=== PATIENT | female | born 1970 | race African-American/Black ===

== ENCOUNTER 2022-07-02 11:00 | Outpatient (RCR) | payer MEDICARE, SELFPAY ==
--- NOTE | 2022-01-30 14:37 | PCPTNOTE ---
Patient did not show up for scheduled initial evaluation this date.
== END 2022-07-02 11:01 | disposition home or self-care (01) ==
LOC: ANHPT 11:00
PROVIDERS: PCP Internal Medicine Gastroenterology; Visit Provider Internal Medicine Gastroenterology
DX: M54.50 Low back pain, unspecified (principal)
CPT/HCPCS: 99199

== ENCOUNTER 2023-07-20 01:21 | Day surgery (SDC) | payer MEDICARE, MEDICAID, SELFPAY ==
[2023-07-17 10:15] VITALS: BMI 36.1
--- NOTE | 2023-07-20 08:16 | WPDANESEPPF ---
Anes - Initial Pre Proc Eval Procedure: Operation Date: 07/20/23 11:30 Proposed Procedures p Esophagogastroduodenoscopy - Malcom Abdullahi MD Date/Time: 07/20/23 08:16 Surgeon: Malcom Abdullahi MD Pre Op Diagnosis: epigastric pain,gaseous,early satiety,nausea Patient Data Age: 52 Gender: F Height: 1.68 m Weight: 101.75 kg Allergies Allergy/AdvReac Type Severity Reaction Status Date / Time phenytoin [From Dilantin] AdvReac Mild Itching Verified 07/20/23 10:14 Home Medications Medication Instructions Recorded Confirmed Type citalopram 20 mg tablet 20 mg PO DAILY 07/13/23 07/20/23 History cyclobenzaprine 10 mg tablet 10 mg PO TID 07/13/23 07/20/23 History gabapentin 800 mg tablet 800 mg PO TID 07/13/23 07/20/23 History linaclotide 145 mcg capsule 145 mcg PO DAILY 07/13/23 07/20/23 History (Linzess) metformin 500 mg tablet 500 mg PO BID 07/13/23 07/20/23 History omeprazole 40 mg capsule,delayed 40 mg PO BID #60 caps 07/13/23 07/20/23 Rx release ondansetron HCl 4 mg tablet 4 - 8 mg PO Q8H PRN nausea and 07/13/23 07/20/23 Rx vomiting #30 tabs propranolol 10 mg tablet 10 mg PO Q12H 07/13/23 07/20/23 History risperidone 1 mg tablet (Risperdal) 1 mg PO DAILY 07/13/23 07/20/23 History rosuvastatin 10 mg tablet 10 mg PO DAILY 07/13/23 07/20/23 History sucralfate 1 gram tablet (Carafate) 1 g PO ACHS #120 tabs 07/13/23 07/20/23 Rx tramadol 50 mg tablet 50 mg PO Q6H PRN Pain 07/13/23 07/20/23 History zolpidem 5 mg tablet 5 mg PO QHS 07/13/23 07/20/23 History bupropion HCl 150 mg tablet,12 hr 150 mg PO BID 07/17/23 07/20/23 History sustained-release enalapril 5 mg-hydrochlorothiazide 1 tablet PO DAILY 07/17/23 07/20/23 History 12.5 mg tablet hydroxyzine pamoate 25 mg capsule 25 mg PO DAILY PRN Anxiety 07/17/23 07/20/23 History Patient hx anesthesia problems: none Family hx anesthesia problems: none Results Review: All pre-operative results and documents have been reviewed as part of the pre-operative evaluation. [facility] Past Medical History Medical History (Updated 07/13/23 @ 15:54 by Martha Hernandez APRN) Bipolar affect, depressed Bloating Colon cancer screening Diabetes mellitus type 2 in obese Early satiety Epigastric abdominal pain Heart murmur Hypertension Irritable bowel syndrome with constipation Migraines Nausea Obesity Seizures Sleep apnea Weight loss Surgical History Surgical History (Updated 07/13/23 @ 15:53 by Martha Hernandez APRN) H/O abdominal hysterectomy H/O eye surgery History of total right knee replacement Hx of cholecystectomy Hx of laparoscopic adjustable gastric banding Status post breast reduction Social History Social History Smoking status: Never smoker Alcohol intake: current Substance use: never Substance use type: does not use Living arrangements: with family Spiritual care concerns: No Anes - Eval Final PreProcedure Day of Procedure 07/20/23 08:16 Patient weight: obese Heart: regular rate and rhythm Lungs: clear to auscultation Airway: Mallampati scale class II Neurological: alert and oriented Last oral intake: >/= 8 hours ASA classification: III Emergent: no Anesthetic plan: proceed Anesthesia type and monitoring: general GIVS and standard monitoring Results Review: All pre-operative results and documents have been reviewed as part of the pre-operative evaluation. Informed Consent: The patient's anesthetic plan and its attendant risks and benefits were discussed with the patient/family/POA. Questions were solicited and answers provided to the satisfaction of the patient/family/POA.
[2023-07-20 10:15] VITALS: BP 161/90; PULSE 83; RESP 17; TEMP 36; O2SAT 96; BMI 31.9
[2023-07-20] MEDS: LACTATED RINGERS 1,000 ML 150 ML IV CONT (10:31)
--- NOTE | 2023-07-20 10:35 | WPDHPUPDATE1 ---
History and Physical Update Update Date/Time: 07/20/23 10:35 History and Physical has been reviewed, including an updated exam of the patient. There are NO changes in the patient's condition. Risks, benefits, and alternatives have been discussed and questions answered. Patient agrees to proceed with procedure.
[2023-07-20 10:38] LABS: Glucose Point of Care 143 mg/dl (65-105)
[2023-07-20 10:57] VITALS: BP 135/61; PULSE 85; RESP 22; O2SAT 96
[2023-07-20 11:07] VITALS: BP 144/66; PULSE 83; RESP 23; O2SAT 96
[2023-07-20 11:17] VITALS: BP 148/70; PULSE 78; RESP 22; O2SAT 95
== END 2023-07-20 11:25 | disposition home or self-care (01) ==
PROVIDERS: PCP Internal Medicine Gastroenterology; Visit Provider Internal Medicine Gastroenterology
PROC: 0DJ08ZZ Inspection of Upper Intestinal Tract, Via Natural or Artificial Opening Endoscopic (ICD-10-PCS; CPT 43235; principal; 2023-07-20 11:30)
DX: T18.2XXA Foreign body in stomach, initial encounter (principal); K29.70 Gastritis, unspecified, without bleeding; I10 Essential (primary) hypertension; K58.1 Irritable bowel syndrome with constipation; E11.9 Type 2 diabetes mellitus without complications; E66.9 Obesity, unspecified; Z68.32 Body mass index [BMI] 32.0-32.9, adult; Z98.84 Bariatric surgery status; Z79.84 Long term (current) use of oral hypoglycemic drugs
CPT/HCPCS: 43239; 82948; 88305; J2704; J7120

== ENCOUNTER 2023-09-03 12:33 | Outpatient (CLI) | payer MEDICARE, MEDICAID, SELFPAY ==
[2023-09-03 13:19] LABS: Hematocrit 45.2 % (37.0-47.0); Hemoglobin 14.5 g/dL (12.0-15.0); Mean Corpuscular HGB Conc 32.1 g/dl (32-36); Mean Corpuscular Hemoglobin 26.6 pg (26-34); Mean Corpuscular Volume 82.8 fl (80-100); Mean Platelet Volume 10.4 fl (7.4-10.4); Platelet Count Result 368 k/mm3 (150-375); Red Blood Count 5.46 M/mm3 (4.2-5.4); Red Cell Distribution Width 16.2 % (11.5-14.5); White Blood Count 9.1 K/mm3 (4.5-10.0)
[2023-09-03 13:29] LABS: Alanine Aminotransferase 41 U/L (6-35); Albumin Level 4.7 g/dL (3.5-5.1); Alkaline Phosphatase 155 U/L (38-126); Anion Gap 11 mmol/L (8-16); Aspartate Amino Transferase 53 U/L (14-36); Bilirubin,Total 0.7 mg/dL (0.2-1.3); Blood Urea Nitrogen 9 mg/dL (7-17); Carbon Dioxide 30 mmol/L (22-30); Chloride 101 mmol/L (98-107); Estimated Glomerular Filt Rate > 60; Glucose 110 mg/dL (65-110); Lipase 59 U/L (23-300); Sodium 142 mmol/L (137-145)
== END 2023-09-03 12:34 | disposition home or self-care (01) ==
LOC: ANHLAB 12:38
PROVIDERS: PCP Internal Medicine Gastroenterology; Visit Provider Nurse Practitioner
DX: R10.13 Epigastric pain (principal); R11.0 Nausea; R14.0 Abdominal distension (gaseous); R68.81 Early satiety; Z98.84 Bariatric surgery status
CPT/HCPCS: 36415; 80053; 83690; 85027

== ENCOUNTER 2025-02-21 08:57 | Outpatient (CLI) | payer MEDICARE, MEDICAID, SELFPAY ==
--- OUTSIDE RECORDS SUMMARY | 2003-07-24 05:45 | XMS_ITS | Continuity of Care Document ---
Author Organization [facility] Address [address] [place] [address] Phone Care Team Providers Care Dredge Mate Name Role Phone Maged Forbes Unavailable Unavailable Advance Directives Directive Yes / No Effective Date File Name No Information Encounters Encounter Description Practice Location Reason(s) For Visit Diagnoses Date Provider Providers Copied on Encounter [facility], [address], [place], [place], [id number], [place] tel:[phone] [facility] Professional No Information 4 Andrei Lynne. [address] , [place], [address], [place]. tel:[phone] Family History Family Member Type Diagnosis Age At Onset No Information Payers Payer name Insurance type Covered green party ID Authoriza tion(s) Medicare [facility] [id number] Medicaid [facility] [id number] Social History Type Description Quantity Date Captured Comments Sex Female Smoking Status No Information Chief Complaint And Reason For Visit No Information Reason For Referral Reason For Referral No Information History Of Present Illness Encounter Date Complaint History Of Prese nt Illness No Information Functional Status Date Functional Assessmen t No Information Instructions Date Instruction Additional Infor mation No Information Assessments Type Assessment Date No Information Patient Care Teams Name Effective Dates (start - stop) Status Members No Information
--- OUTSIDE RECORDS SUMMARY | 2025-02-21 09:21 | XMS_ITS | Encounter Summary ---
Author Organization [facility] Address [address] [place] [address] Care Team Providers Care Certified Industrial Hygienist Name Role Phone Obed Red MD Primary Care Provider + [phone] Encounter Details Date Type Department Care Team (Late st Contact Info) Description 02/06/2011 SS Outpatient Visit EXTERNAL NON-[facility] DEPT Neil Alarcon MD [address] [place] [id number] Social History Tobacco Use Types Packs/Day Years Used Date Smoking Tobacco: Never Smokeless Tobacco: Never Alcohol Use Standard Drinks/Week Comments No 0 (1 standard drink = 0.6 oz pur e alcohol) Comments No Sex and Gender Information Value Date Recorded Sex Assigned at Not on file 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
--- OUTSIDE RECORDS SUMMARY | 2025-02-21 09:21 | XMS_ITS | Clinical Summary ---
Author Organization [facility] Address [address] [place] [address] Care Team Providers Care Parachute Crown Sewer Name Role Phone Obed Red MD Primary Care Provider Allergies Active Allergy Reactions Criticality Noted Date Comments Phenytoin Sodium Extended Itching Low 02/07/2018 Medications ibuprofen (ADVIL,MOTRIN) 800 mg tablet Take 1 tablet (800 mg total) by mouth every 8 (eight) hours as needed for pain or fever. 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 TESTER Gender Identity Not on file Sexual Orientation Not on file Obstetrics History Last Filed Vital Signs Vital Sign Reading Time Taken Comments Blood Pressure 147/91 02/07/2018 4:15 PM CDT Pulse 96 02/07/2018 4:15 PM CDT Temperature 36.7 C (98.1 F) 02/07/2018 4:15 PM CDT Respiratory Rate 16 02/07/2018 4:15 PM CDT Oxygen Saturation 98% 02/07/2018 4:15 PM CDT Inhaled Oxygen Concentration - - Weight 108 kg (238 lb) 02/07/2018 4:15 PM CDT Height 167.6 cm (5' 6) 02/07/2018 4:15 PM CDT Body Mass Index 38.41 02/07/2018 4:15 PM CDT Plan of Treatment Health Maintenance Due Date Last Done Comments Breast Cancer Screening-Mammogram 1968 Colon Cancer Screening-Colonoscopy 1968 Depression Screening 1968 Hepatitis C Screening 1968 DTaP/Tdap/Td Vaccine (1 - Tdap) 12/19/1979 Hepatitis B Screening 1986 Regular Well Visit/Exam 18-64 1986 Zoster Vaccine (1 of 2) 2018 Influenza Vaccine (#1) 2025 05/07/2019 Pneumococcal vaccine <65 Aged Out No longer eligible based on patient's age to complete this topic Insurance [employer] MEDICARE PPO [facility] MEDICARE ADVANTAGE [facility]ICARE [facility] Address: [address] [address] [place] [address] Care Teams Parachute Crown Sewer Relationship Specialty Start Date End Date Obed Red MD [address] [address] PCP - General 09/12/16
--- OUTSIDE RECORDS SUMMARY | 2025-02-21 09:21 | XMS_ITS | Clinical Summary ---
Author Organization [facility] Address [address] [place] [address] Care Team Providers Care Store Stock Help Name Role Phone Obed Red MD Primary Care Provider [phone] [facility],non-owned Affiliates and Associated Physician Practices is amultiple site organization consisting of ambulatory clinics and hospital sitesin [place] and [place]. This disclosure is being madepursuant to the Care Everywhere program and may not contain all information available regarding this patient. Last updated 18.[facility] Allergies Active Allergy Reactions Criticality Noted Date Comments Phenytoin Rash,Itching High 10/23/2010 Phenytoin Itching 12/09/2010 Medications * Be aware that medications may not be up to date on this document. Alwaysverify current medications with the patient. gabapentin (NEURONTIN) 800 MG tablet Take 1 (one) tablet by mouth 3 times daily Active buPROPion SR 12hr (WELLBUTRIN-SR ) 150 MG tablet Take 1 (one) tablet by mouth 2 times daily 9 Active citalopram (CeleXA) 20 MG tablet Take 1 (one) tablet by mouth once daily Takes with 10 mg product for a total of 30 mg 9 Active hydrOXYzine pamoate (VISTARIL) 25 MG capsule Take 1 (one) capsule by mouth once daily as needed for Anxiety 9 Active zolpidem (AMBIEN) 5 MG tablet Take 1 (one) tablet by mouth at bedtime 9 Active risperiDONE (RISPERDAL) 1 MG tablet Take 1 (one) tablet by mouth at bedtime Active propranolol (Inderal) 10 MG tablet Take 1 (one) tablet by mouth 2 times daily with morning and evening meal 3 Active cyclobenzaprin e (Flexeril) 10 MG tablet Take 1 (one) tablet by mouth 3 times daily as needed 3 Active Linzess 145 MCG capsule Take 1 (one) capsule by mouth once daily 4 Active rosuvastatin (Crestor) 10 MG tablet Take 1 (one) tablet by mouth once daily 3 Active citalopram (CeleXA) 10 MG tablet Take 1 (one) tablet by mouth once daily Takes with 20 mg product for a total of 30 mg Active amLODIPine (Norvasc) 10 MG tablet Take 1 (one) tablet by mouth once daily Active Farxiga 10 MG tablet Take 1 (one) tablet by mouth once daily 4 Active hydrALAZINE (Apresoline) 50 MG tablet Take 1 (one) tablet by mouth 2 times daily Active Semaglutide(0. 25 or 0.5MG/DOS) 2 MG/3ML Solution Pen-injector (Ozempic (0.25 or 0.5 MG/DOSE))Indic ations:Type 2 Diabetes Mellitus Inject 0.25 mg subcutaneously every 7 days Reasons: Type 2 Diabetes 3 mL 4 Active Semaglutide(0. 25 or 0.5MG/DOS) 2 MG/3ML Solution Pen-injector (Ozempic (0.25 or 0.5 MG/DOSE))Indic ations:Control led type 2 diabetes mellitus without complication, without long-term current use of insulin (HCC) Inject 0.5 mg subcutaneously every 7 days 6 mL 4 Active Active Problems Problem Noted Date Diagnosed Date Extremity edema 10/22/2023 Bariatric surgery status 10/12/2023 Immunizations Immunization Administration Dates Next Due INFLUENZA VACCINE 05/07/2019 Social History Tobacco Use Types Packs/Day Years Used Date Smoking Tobacco: Never Smokeless Tobacco: Never Tobacco Cessation:Counseling Given: Not Answered Alcohol Use Standard Drinks/Week Comments No 0 (1 standard drink = 0.6 oz pur e alcohol) AUDIT-C Answer Date Recorded Q1: How often do you have a drink containing alcohol? Never 10/12/2023 Q2: How many drinks containi ng alcohol do you have on a typical day when you are drinking? Patient does not drink Q3: How often do you have si x or more drinks on one occasion? Never 10/12/2023 Overall Financial Resource Strain (CARDIA) Answe r Date Recorded How hard is it for you to pa y for the very basics like food, housing, medical care, and heating? Not hard at all 10/12/2023 [facility] - Occupational Stress Questionnaire Answer Date Recorded Do you feel stress - tense, restless, nervous, or anxious, or unable to sleep at night because your mind is troubled all the time - these days? Not at all 10/12/2023 Hunger Vital Sign Answer Date Recorded Within the past 12 months, y ou worried that your food would run out before you got the money to buy more. Never true 10/12/19 24 Within the past 12 months, t he food you bought just didn't last and you didn't have money to get more. Never true 10/12/2023 PRAPARE - Transportation Answer Date Re corded In the past 12 months, has l ack of transportation kept you from medical appointments or from getting medications? No 02/2024 In the past 12 months, has l ack of transportation kept you from meetings, work, or from getting things needed for daily living? No 10/12/2023 Housing Stability Vital Sign Answer Navneet e Recorded In the last 12 months, was t here a time when you were not able to pay the mortgage or rent on time? No 10/12/2023 In the last 12 months, how many places have you lived? 1 10/12/2023 In the last 12 months, was t here a time when you did not have a steady place to sleep or slept in a detention (including now)? No 10/12/2023 Comments No Sex and Gender Information Value Date Recorded Sex Assigned at Not on file Legal Sex Female 11:37 AM FINISHED GOODS STOCK CLERK Gender Identity Not on file Sexual Orientation Not on file Last Filed Vital Signs Vital Sign Reading Time Taken Comments Blood Pressure 126/84 06/23/2024 1:29 PM FINISHED GOODS STOCK CLERK Pulse 100 06/23/2024 1:29 PM FINISHED GOODS STOCK CLERK Temperature 36.1 C (96.9 F) 06/23/2024 1:29 PM FINISHED GOODS STOCK CLERK Respiratory Rate 16 11/12/2023 11:25 AM CDT Oxygen Saturation 94% 06/23/2024 1:29 PM FINISHED GOODS STOCK CLERK Inhaled Oxygen Concentration - - Weight 109 kg (240 lb 3.2 oz) 06/23/2024 1:29 PM FINISHED GOODS STOCK CLERK Height 167.6 cm (5' 6) 06/23/2024 1:29 PM FINISHED GOODS STOCK CLERK Body Mass Index 38.77 06/23/2024 1:29 PM FINISHED GOODS STOCK CLERK Plan of Treatment Health Maintenance Due Date Last Done Comments COLOGUARD (AGES 45-75) - COLON CA SCREENING 1968 COLON MONITORING 1968 COLONOSCOPY - COLON CA SCREENING 1968 CT COLONOGRAPHY - COLON CA SCREENING 1968 Colorectal Cancer Screening 1968 FIT - COLON CA SCREENING 1968 FLEX SIG - COLON CA SCREENING 1968 MAMMOGRAM 1968 HIV SCREENING 12/19/1983 HEPATITIS C SCREENING 12/14/1986 DTAP/TDAP/TD VACCINES (1 - Tdap) 12/19/1987 HEPATITIS B VACCINE (1 of 3 - 19+ 3-dose series) 12/19/1987 PNEUMOCOCCAL VACCINE 50+ (1 of 2 - PCV) 12/19/1987 PAP SMEAR 1989 ZOSTER VACCINE (1 of 2) 2018 COVID-19 VACCINE (1 - season) 2024 DEPRESSION SCREENING 07/06/2024 MEDICARE AWV CALENDAR YEAR 2024 INFLUENZA VACCINE (#1) 2025 05/07/2019 SCREENING FOR DIABETES 11/02/2026 4, 11/03/2023, 11/03/2023, Additional history exists HIB VACCINE Aged Out No longer eligi ble based on patient's age to complete this topic HPV VACCINE Aged Out No longer eligi ble based on patient's age to complete this topic MENINGOCOCCAL (Group B) VACCINE SHARED DECISION-MAKING Aged Out No longer eligible based on patient's age to complete this topic MENINGOCOCCAL GROUPS A/C/Y/W VACCINE Aged Out No longer eligible based on patient's age to complete this topic Procedures Procedure Name Priority Date/Time Associated Diagnosis Comments GLUCOSE - POINT OF CARE Routine 11/03/2023 11:17 AM CDT from Last 3 Months or Most Recently Relevant to Health Maintenance Results * (ABNORMAL) GLUCOSE - POINT OF CARE (11/03/2023 11:17 AM CDT) Glucose WB/POC 177(H) 70 - 106 mg/dL 11/03/2023 11:22 AM CDT [facility] Specimen Type Arterial 11/03/2023 11:22 AM CDT [facility] Blood BLOOD SPECIMEN / Unknown 11/03/2023 11:17 AM CDT 11/03/2023 11:22 AM CDT us Neil Alarcon MD LAB - POINT OF CARE ORDERABLE S Final Result [facility] [address] [place] [address] from Last 3 Months or Most Recently Relevant to Health Maintenance Insurance MEDICA[place] - [place] [facility] MANAGED MEDICARE ADV MEDICAID - [place] Advance Directives * Full Code (Latest Code Status on File) Date Activated Date Inactivated Comments 10/12/2023 6:11 PM 11/03/2023 5:43 PM * Full Code Date Activated Date Inactivated Comments 12/16/2010 4:55 PM 2010 3:10 AM Care Teams Store Stock Help Relationship Specialty Start Date End Date Obed Red MD [address] [place] [address] PCP - General 02/15/19
--- NOTE | 2025-03-15 09:49 | WPDSLEEPSTUD ---
Sleep Study Date of Study: 02/21/25 Ordering Provider: Johny Porter, Interpreting Physician: Moon Bolaños MD Sleep Study Type: Split Polysomnogram Height: 1.68 m Weight: 100.244 kg Body Mass Index: 35.6 Neck Circumference (inches): 17.5 [place]: 8 PMFSH Past Medical History Medical History Obesity hypoventilation syndrome Obstructive sleep apnea Neuropathic pain Colon cancer screening Irritable bowel syndrome with constipation Heart murmur Seizures Bipolar affect, depressed Migraines Hypertension Sleep apnea Diabetes mellitus type 2 in obese Weight loss Obesity Nausea Early satiety Bloating Epigastric abdominal pain Surgical History Surgical History History of total right knee replacement H/O eye surgery H/O abdominal hysterectomy Status post breast reduction Hx of cholecystectomy Hx of laparoscopic adjustable gastric banding Social History Social History Smoking status: Never smoker Alcohol intake: unknown Substance use: unknown Substance use type: does not use Do You Feel Safe in your Home?: Yes Lack of Transportation: No Lack of Food: Never True Current Housing: I Have Housing Concerned About Future Housing: No Difficulty Paying Gas/Electric Bills: No Difficulty Paying for Meds: No Currently Unemployed: No Education: Trade/Vocational Certificate Difficulty w/ Childcare or Family Care: No Living arrangements: with family Spiritual care concerns: No Medications Home Medications ?Medication ?Instructions ?Recorded ?Confirmed ?Type acetaminophen 500 mg capsule 1,000 mg PO Q6H 01/07/25 01/07/25 History calcium carbonate 600 mg PO BID 01/07/25 01/07/25 History cholecalciferol (vitamin D3) 125 5,000 unit PO DAILY 01/07/25 01/07/25 History mcg (5,000 unit) capsule diazepam 5 mg tablet 5 mg PO Q6H PRN muscle spasm 01/07/25 01/07/25 History diphenhydramine HCl 25 mg capsule 25 mg PO HS 01/07/25 01/07/25 History ergocalciferol (vitamin D2) 1,250 1,250 mcg PO WEEKLY 01/07/25 01/07/25 History mcg (50,000 unit) capsule gabapentin 800 mg tablet 800 mg PO TID 01/07/25 01/07/25 History linaclotide 290 mcg capsule 290 mcg PO QAM 01/07/25 01/07/25 History (Linzess) polyethylene glycol 3350 17 gram 17 g PO BID 01/07/25 01/07/25 History oral powder packet semaglutide 1 mg/dose (4 mg/3 mL) 1 mg subcut WEEKLY 01/07/25 01/07/25 History subcutaneous pen injector (Ozempic) sennosides 8.6 mg-docusate sodium 1 tab-cap PO BID 01/07/25 01/07/25 History 50 mg tablet (Senna with Docusate Sodium) zolpidem 10 mg tablet 10 mg PO HS 01/07/25 01/07/25 History amlodipine 10 mg tablet 10 mg PO DAILY #30 tabs 01/18/25 Rx aripiprazole 10 mg tablet 10 mg PO DAILY #30 tabs 01/18/25 Rx citalopram 30 mg capsule 30 mg PO DAILY #30 caps 01/18/25 Rx cyclobenzaprine 10 mg tablet 5 mg (1/2 x 10 mg) PO Q8H #90 tabs 01/18/25 Rx hydralazine 50 mg tablet 50 mg PO BID #60 tabs 01/18/25 Rx lisinopril 40 mg tablet 40 mg PO DAILY #30 tabs 01/18/25 Rx propranolol 10 mg tablet 10 mg PO Q12H #60 tabs 01/18/25 Rx risperidone 1 mg tablet 1 mg PO HS #30 tabs 01/18/25 Rx rosuvastatin 20 mg tablet 20 mg PO DAILY #30 tabs 01/18/25 Rx naloxone 4 mg/actuation nasal 4 mg intranasal Q2M PRN opioid 01/19/25 Rx spray (Narcan) overdose #2 ea oxycodone 5 mg tablet 5 - 10 mg (1 - 2 x 5 mg) PO Q4H 01/19/25 Rx PRN pain #30 tabs Assessment and Plan Data The data obtained during this sleep study is adequate for interpretation. Certification This sleep study has been reviewed by a board certified sleep medicine physician.
[2025-03-23 07:43] VITALS: BMI 35.6
--- NOTE | 2025-03-23 07:43 | WPDSLEEPSTUD ---
Sleep Study Date of Study: 02/21/25 Ordering Provider: Johny PorterMD Interpreting Physician: Court Reza DO Sleep Study Type: Split Polysomnogram Height: 1.68 m Weight: 100.244 kg Body Mass Index: 35.6 Neck Circumference (inches): 17.5 Lena: 8 Reason for Sleep Study snoring, daytime hypersomnia Sleep History The patient is a 54-year-old female with previously diagnosed obesity hypoventilation syndrome and obstructive sleep apnea that had a sleep study ordered by her planer stone to requalify for equipment. The patient occasionally awakens from sleep short of breath. She occasionally awakens at night with heartburn, belching or cough. She frequently snores and is occasionally loud enough that others complain. She frequently has trouble sleeping when she has a cold. She rarely wakes up gasping for air throughout the night. She occasionally has breathing problems at night observed by herself or others. She frequently sweats excessively at night. She rarely has heart palpitations or irregular heartbeats during the night. She occasionally falls asleep during the day but never while driving. She denies cataplexy. She denies having trouble at school or work due to sleepiness. She rarely feels unable to move while waking up or falling asleep. She occasionally experiences vivid dreamlike scenes upon awakening or falling asleep. She denies feeling afraid of going to sleep. She denies having nightmares. She frequently remembers her dreams. She rarely has thoughts racing through her mind. She frequently feels sad, depressed and anxious. She frequently has muscular tension. She constantly notices parts of her body jerk. She occasionally kicks during the night. She occasionally has crawling and aching feelings in her legs but rarely has leg pain during the night. She occasionally grinds her teeth during sleep but never awakens with morning jaw pain. She is frequently bothered by pain during the day and frequently awakened by pain during the night. She constantly wakes up feeling stiff in the morning. She constantly wakes up with sore or achy muscles. She constantly wakes up with pain in the neck, spine and other joints. She goes to bed at 10:30 p.m. on weekdays and at 11:30 p.m. on the weekends. It takes her 1-2 hours to fall asleep. She wakes up twice throughout the night to urinate and is able to fall back asleep within 20 minutes. She wakes up at 3:20 a.m. every morning. She typically gets 6 hours of sleep per night. She will stay in bed for 2 hours after waking up in the morning. She currently lives with her teenage grandson. She denies consuming any caffeinated beverages within 2 hours of bedtime. She denies engaging in physical exercise before bedtime. She will read watch television before falling asleep. He will take naps in afternoon or the evening and they are refreshing. She does consume caffeinated beverages throughout the day. She denies tobacco, alcohol and recreational drug use. [facility] Past Medical History Medical History Obesity hypoventilation syndrome Obstructive sleep apnea Neuropathic pain Colon cancer screening Irritable bowel syndrome with constipation Heart murmur Seizures Bipolar affect, depressed Migraines Hypertension Sleep apnea Diabetes mellitus type 2 in obese Weight loss Obesity Nausea Early satiety Bloating Epigastric abdominal pain Surgical History Surgical History History of total right knee replacement H/O eye surgery H/O abdominal hysterectomy Status post breast reduction Hx of cholecystectomy Hx of laparoscopic adjustable gastric banding Social History Social History Smoking status: Never smoker Alcohol intake: unknown Substance use: unknown Substance use type: does not use Do You Feel Safe in your Home?: Yes Lack of Transportation: No Lack of Food: Never True Current Housing: I Have Housing Concerned About Future Housing: No Difficulty Paying Gas/Electric Bills: No Difficulty Paying for Meds: No Currently Unemployed: No Education: Trade/Vocational Certificate Difficulty w/ Childcare or Family Care: No Living arrangements: with family Spiritual care concerns: No Medications Home Medications ?Medication ?Instructions ?Recorded ?Confirmed ?Type acetaminophen 500 mg capsule 1,000 mg PO Q6H 01/07/25 01/07/25 History calcium carbonate 600 mg PO BID 01/07/25 01/07/25 History cholecalciferol (vitamin D3) 125 5,000 unit PO DAILY 01/07/25 01/07/25 History mcg (5,000 unit) capsule diazepam 5 mg tablet 5 mg PO Q6H PRN muscle spasm 01/07/25 01/07/25 History diphenhydramine HCl 25 mg capsule 25 mg PO HS 01/07/25 01/07/25 History ergocalciferol (vitamin D2) 1,250 1,250 mcg PO WEEKLY 01/07/25 01/07/25 History mcg (50,000 unit) capsule gabapentin 800 mg tablet 800 mg PO TID 01/07/25 01/07/25 History linaclotide 290 mcg capsule 290 mcg PO QAM 01/07/25 01/07/25 History (Linzess) polyethylene glycol 3350 17 gram 17 g PO BID 01/07/25 01/07/25 History oral powder packet semaglutide 1 mg/dose (4 mg/3 mL) 1 mg subcut WEEKLY 01/07/25 01/07/25 History subcutaneous pen injector (Ozempic) sennosides 8.6 mg-docusate sodium 1 tab-cap PO BID 01/07/25 01/07/25 History 50 mg tablet (Senna with Docusate Sodium) zolpidem 10 mg tablet 10 mg PO HS 01/07/25 01/07/25 History amlodipine 10 mg tablet 10 mg PO DAILY #30 tabs 01/18/25 Rx aripiprazole 10 mg tablet 10 mg PO DAILY #30 tabs 01/18/25 Rx citalopram 30 mg capsule 30 mg PO DAILY #30 caps 01/18/25 Rx cyclobenzaprine 10 mg tablet 5 mg (1/2 x 10 mg) PO Q8H #90 tabs 01/18/25 Rx hydralazine 50 mg tablet 50 mg PO BID #60 tabs 01/18/25 Rx lisinopril 40 mg tablet 40 mg PO DAILY #30 tabs 01/18/25 Rx propranolol 10 mg tablet 10 mg PO Q12H #60 tabs 01/18/25 Rx risperidone 1 mg tablet 1 mg PO HS #30 tabs 01/18/25 Rx rosuvastatin 20 mg tablet 20 mg PO DAILY #30 tabs 01/18/25 Rx naloxone 4 mg/actuation nasal 4 mg intranasal Q2M PRN opioid 01/19/25 Rx spray (Narcan) overdose #2 ea oxycodone 5 mg tablet 5 - 10 mg (1 - 2 x 5 mg) PO Q4H 01/19/25 Rx PRN pain #30 tabs Sleep Procedure A full night split study using the [employer] multi-channel system recorded the standard physiologic parameters including EEG, EOG, submentalis EMG, anterior tibialis EMG, EKG, body position, nasal and oral airflow using nasal pressure sensor and thermistor.? Respiratory parameters of chest and abdominal movements were recorded with Respiratory Inductance Plethysmography belts. Oxygen saturation was recorded by pulse oximetry. Video monitoring was also performed. Sleep stages, periodic limb movements, and EEG arousals were scored in 30 second epochs according to the criteria of the AASM Scoring Manual. The Apnea-Hypopnea Index was calculated using [facility] guidelines for definition of hypopnea with 4% O2 desaturations while scoring respiratory events. Sleep Architecture During the diagnostic portion of the study, the total recording time was 193.9 minutes. The total sleep time was 155.5 minutes. Sleep latency was 11.4 minutes.? REM sleep was not achieved during this portion of the study. Sleep Efficiency was 80.2%. The patient had 3 awakenings for an awakening index of 1.2. Wake after sleep onset time was 27.0 minutes. The patient spent 3.0 minutes, 1.9% of total sleep time in Stage N1. The patient spent 152.5 minutes, 98.1% in Stage N2. The patient spent 0.0 minutes, 0.0% in Stage N3. The patient spent 0.0 minutes, 0.0% in Stage REM sleep. At 12:48:32 AM the patient was placed on PAP treatment and was titrated at pressures ranging from 5 cm H20 up to 16/10 cm H20. During the treatment portion of the study, the total recording time was 303.7 minutes.? The total sleep time was 245.0 minutes. Sleep latency was 0.5 minutes. REM latency was 126.5 minutes. Sleep Efficiency was 80.7%. Wake after Sleep Onset time was 58.0 minutes. The patient spent 7.5 minutes, 3.1% of total sleep time in Stage N1. The patient spent 202.5 minutes, 82.7% in Stage N2. The patient spent 26.5 minutes, 10.8% in Stage N3. The patient spent 8.5 minutes, 3.5% in Stage REM. Respiratory Analysis During the diagnostic portion of the study, the patient had 25 hypopneas for an overall Apnea Hypopnea Index of 9.6 events per hour. The REM Apnea Hypopnea Index was 0. The NREM Apnea Hypopnea Index was 9.6. The patient had a Central Apnea Hypopnea Index of 0. There was no evidence of Woodrow-Clay Respirations. During the treatment portion of the study, the patient had 54 hypopneas, 2 obstructive apneas, 1 mixed apnea and 8 central apneas for an overall Apnea Hypopnea Index of 15.9 events per hour. The REM Apnea Hypopnea Index was 21.2. The NREM Apnea Hypopnea Index was 15.7. The patient had a Central Apnea Hypopnea Index of 2.0. There was no evidence of Woodrow-Clay Respirations. The patient was started on supplemental oxygen at 1 lpm prior to qualifying for CPAP due to hypoxemia without respiratory events. The patient was started on CPAP 5 cm H2O and titrated to BPAP 16/10 cm H2O due to central apneas and hypopneas. The patient was able to fall asleep starting on CPAP 5 cm H2O. The patient was able to achieve REM sleep starting on BPAP 12/6 cm H2O. The patient was able to achieve a residual AHI of 0 on the final pressure setting but still had an SpO2<90%. Arousals During the diagnostic portion of the study, there were a total of 15 arousals for an arousal index of 5.8.? There were 1 respiratory arousals for an index of 0.4. There was 1 periodic limb movement arousal for an index of 0.4.? There was 1 isolated limb movement arousal for an index of 0.4. There were 12 spontaneous arousals for an index of 4.6. During the treatment portion of the study, there were a total of 35 arousals for an index of 8.6.? There were 3 respiratory arousals for an index of 0.7. There were 0 periodic limb movement arousals for an index of 0.? There were 7 isolated limb movement arousals for an index of 1.7. There were 25 spontaneous arousals for an index of 6.1. Periodic Limb Movements During the diagnostic portion of the study, the patient had 15 isolated limb movements with an index of 5.8. The patient had 6 periodic limb movements with an index of 2.3. The patient had a total of 21 limb movements with a total limb movement index of 8.1. During the treatment portion of the study, the patient had 28 isolated limb movements with an index of 6.9. The patient had 0 periodic limb movements with an index of 0. The patient had a total of 28 limb movements with a total limb movement index of 6.9. Oximetry Data During the diagnostic portion of the study, the patient had an average oxygen saturation of 86.9% in wake with a minimum oxygen saturation of 82% and a maximum oxygen saturation of 91%. The patient had an average oxygen saturation of 86.1% in sleep with a minimum oxygen saturation of 80.0% and a maximum oxygen saturation of 91.0%. The patient had 27 oxygen desaturations resulting in an Oxygen Desaturation Index of 10.4. The patient spent 157.8 minutes, 88.3% of total sleep time with an oxygen saturation less than 88%. During the treatment portion of the study, the patient had an average oxygen saturation of 89.2% in wake with a minimum oxygen saturation of 84.0% and a maximum oxygen saturation of 94.0%. The patient had an average oxygen saturation of 87.2% in sleep with a minimum oxygen saturation of 79.0% and a maximum oxygen saturation of 92.0%. The patient had 81 oxygen desaturations resulting in an Oxygen Desaturation Index of 19.8. The patient spent 191.4 minutes, 64.4% of total sleep time with an oxygen saturation less than 88%. Snoring Profile Mild snoring was present in the baseline portion of the study. The snoring resolved once the patient was titrated to BPAP 14/8 cm H2O. Cardiac Profile The EKG lead showed sinus tachycardia (HR > 90 bpm) throughout the study. During the diagnostic portion of the study, the average pulse rate was 97.4 bpm.? The minimum pulse rate was 90.0 bpm. The maximum pulse rate was 107.0 bpm. During the treatment portion of the study, the average pulse rate was 89.7 bpm.? The minimum pulse rate was 83.0 bpm. The maximum pulse rate was 102.0 bpm. EEG Profile No signs of seizure activity seen. Assessment and Plan Assessment and Plan (1) Obstructive sleep apnea: Code(s): G47.33 - Obstructive sleep apnea (adult) (pediatric) Status: Chronic Assessment and Plan: In the baseline portion of the study, the patient had an overall AHI of 9.6 with desaturation down to 80%. This is consistent with mild sleep apnea. Due to the patient's hypertension, she qualifies for treatment. While the patient was in wake in the lateral position, her SpO2 ranged from 85-89%. The patient has no pulmonary diseases listed on her chart. The patient was started on CPAP 5 cm H2O and titrated to BPAP 16/10 cm H2O due to central apneas and hypopneas. While the patient's sleep apnea resolved on the final pressure setting, her SpO2 ranged from 84%-88%. I recommend that the patient be prescribed BPAP 16/10 cm H2O with 1 lpm of supplemental O2, size small Resmed P30i nasal pillows, BPAP filters/tubing and heated humidity. This should be used with all episodes of sleep.? Compliance should be reviewed within 31-90 days of starting therapy for usage greater than 4 hours per night greater than 70% of the nights. The patient should be asked about symptoms such as?excessive daytime sleepiness, quality of sleep, decreased nocturia, increased?mental functioning such as memory, mood, and concentration. Due to the patient's hypoxemia while laying down but awake, further evaluation is warranted. The patient's use of narcotics is likely contributing. I recommend that the patient have a 2 view CXR and PFT. Data The data obtained during this sleep study is adequate for interpretation. Certification This sleep study has been reviewed by a board certified sleep medicine physician.
== END 2025-02-22 06:46 | disposition home or self-care (01) ==
LOC: ANHCSM 09:01
PROVIDERS: PCP Internal Medicine Gastroenterology; Visit Provider Internal Medicine Pulmonary Disease
DX: G47.33 Obstructive sleep apnea (adult) (pediatric) (principal)
CPT/HCPCS: 95811

== ENCOUNTER 2025-03-10 16:09 | Emergency (ER) | payer MEDICARE, SELFPAY ==
--- NOTE | 2025-03-10 16:24 | ED.URI ---
HPI - URI/Sore Throat General Chief Complaint: Upper Respiratory Infection Stated Complaint: sore throat/cough Time Seen by Provider: 03/10/25 16:38 Source: patient and RN notes reviewed Mode of arrival: ambulatory Limitations: no limitations History of Present Illness HPI Narrative: 54-year-old female presents with concern for exposure to COVID. Reports she started having sore throat, body aches, cough that is diarrhea yesterday. MD elicited complaint: sore throat Related Data Home Medications ?Medication ?Instructions ?Recorded ?Confirmed ?Last Taken ?Type acetaminophen 500 mg capsule 1,000 mg PO Q6H 01/07/25 01/07/25 01/07/25 09:00 History calcium carbonate 600 mg PO BID 01/07/25 01/07/25 01/07/25 09:00 History cholecalciferol (vitamin D3) 125 5,000 unit PO DAILY 01/07/25 01/07/25 01/07/25 09:00 History mcg (5,000 unit) capsule diazepam 5 mg tablet 5 mg PO Q6H PRN muscle spasm 01/07/25 01/07/25 01/07/25 09:00 History diphenhydramine HCl 25 mg capsule 25 mg PO HS 01/07/25 01/07/25 01/06/25 20:00 History ergocalciferol (vitamin D2) 1,250 1,250 mcg PO WEEKLY 01/07/25 01/07/25 Unknown History mcg (50,000 unit) capsule gabapentin 800 mg tablet 800 mg PO TID 01/07/25 01/07/25 01/07/25 09:00 History linaclotide 290 mcg capsule 290 mcg PO QAM 01/07/25 01/07/25 01/07/25 06:30 History (Linzess) polyethylene glycol 3350 17 gram 17 g PO BID 01/07/25 01/07/25 01/07/25 09:00 History oral powder packet semaglutide 1 mg/dose (4 mg/3 mL) 1 mg subcut WEEKLY 01/07/25 01/07/25 Unknown History subcutaneous pen injector (Ozempic) sennosides 8.6 mg-docusate sodium 1 tab-cap PO BID 01/07/25 01/07/25 01/07/25 09:00 History 50 mg tablet (Senna with Docusate Sodium) zolpidem 10 mg tablet 10 mg PO HS 01/07/25 01/07/25 01/06/25 20:00 History Allergies Allergy/AdvReac Type Severity Reaction Status Date / Time latex Allergy Itching Verified 03/10/25 16:27 phenytoin (From Dilantin) AdvReac Mild Itching Verified 03/10/25 16:27 Review of Systems Review of Systems: CONSTITUTIONAL: Reports malaise, fever. EYES: Denies visual changes, redness, or discharge. ENT: Reports rhinorrhea, congestion, and sore throat. CARDIOVASCULAR: Denies chest pain, palpitations, or edema. RESPIRATORY: Reports cough. Denies dyspnea. GASTROINTESTINAL: Denies abdominal pain, nausea, vomiting, diarrhea SKIN: Denies rash or itching. MUSCULOSKELETAL: Reports myalgia. NEUROLOGIC: Denies headache. All systems reviewed & are unremarkable except as noted in HPI and below PMFSH Past Medical History Medical History Obesity hypoventilation syndrome Obstructive sleep apnea Neuropathic pain Colon cancer screening Irritable bowel syndrome with constipation Heart murmur Seizures Bipolar affect, depressed Migraines Hypertension Sleep apnea Diabetes mellitus type 2 in obese Weight loss Obesity Nausea Early satiety Bloating Epigastric abdominal pain Surgical History Surgical History History of total right knee replacement H/O eye surgery H/O abdominal hysterectomy Status post breast reduction Hx of cholecystectomy Hx of laparoscopic adjustable gastric banding Social History Social History Smoking status: Never smoker Alcohol intake: unknown Substance use: unknown Substance use type: does not use Do You Feel Safe in your Home?: Yes Lack of Transportation: No Lack of Food: Never True Current Housing: I Have Housing Concerned About Future Housing: No Difficulty Paying Gas/Electric Bills: No Difficulty Paying for Meds: No Currently Unemployed: No Education: Trade/Vocational Certificate Difficulty w/ Childcare or Family Care: No Living arrangements: with family Spiritual care concerns: No Comments At time of signature, agree with nursing past medical, surgical, social and family history. There is no relevant family history pertinent to the presenting complaint Exam Narrative: GENERAL: Nontoxic-appearing, well-nourished, and in no acute distress. HEAD: Normocephalic EYES: PERRLA, conjunctivae clear ENT: Nares clear, turbinates edematous and erythematous, clear discharge. Mucous membranes moist. TM pearly gutierrez with dull light reflex bilaterally; no tragal tenderness. Oropharynx not erythematous without lesions. Tonsils not enlarged and without exudate, no drooling, no hoarseness, no trismus, uvula midline. NECK: Supple. No lymphadenopathy CHEST: Clear to auscultation, breath sounds equal. No wheezing, rhonchi, rales, or stridor. No respiratory distress, speaks in full sentences. HEART: Regular rate and rhythm. No murmur heard. SKIN: Warm, dry, no rash. NEURO: Alert and oriented x3. PSYCH: Normal mood and affect Course Course Emergency Course: Patient is aware of diagnosis, understands and agrees to treatment plan. Anticipatory guidance given. Patient agrees to follow-up as directed and is aware of reasons to seek care at the emergency department. Portions of this record may have been created with voice recognition software Level of Care: [facility] Department Visit Vital Signs Vital signs: Reviewed. MDM - URI/Sore Throat MDM Narrative Medical decision making narrative: Differential diagnosis considered: Henry virus, strep pharyngitis, allergic rhinitis, upper respiratory tract infection, sinusitis, rhinosinusitis, nasopharyngitis. viral pharyngitis, otitis media, otitis externa, pneumonia, bronchitis, viral cough syndrome, viral syndrome, and influenza. Exam findings show no acute concerns or changes; patient is non-toxic appearing and is in no distress. Patient is appropriate for outpatient treatment and follow-up. Lab Data Attestation: I reviewed the patient's lab results. Critical Care Time Critical Care Time Critical Care Time: No Discharge Plan Discharge Clinical Impression: Upper respiratory infection Patient Disposition: Home Condition: Stable Instructions: Upper Respiratory Infection (ED) Additional Instructions: Your rapid COVID and flu tests are negative Your rapid strep swab was negative today at [facility]. A throat culture will be sent to the laboratory for further testing. If the test is positive, you will receive a phone call within 48 hours and an appropriate antibiotic will be initiated at that time. Your symptoms are likely due to a viral illness, which is not treated with antibiotics. Viral symptoms can be present for up to a few weeks. -Alternate Tylenol and Motrin per package directions for fever or pain. -Antihistamine medication such as Benadryl at night and Zyrtec during the day can help improve symptoms. -Eat and drink things that are easy to swallow, like tea or soup, or popsicles to suck on. -Oral rinses such as: Salt water gargles and/or may use topical anesthetic (eg. Chloraseptic spray) or lozenges to relieve dryness or throat pain). -Frequent hand washing or hand escort car driver is one of the best ways to prevent spread of infection. -Follow up with primary care provider in 2-3 days if condition is not improving; or seek ER visit if you have trouble breathing, cannot drink enough fluids, have muffled voice, difficulty opening your mouth, or severe swelling. Patient Language: Kiswahili Prescriptions: No Action acetaminophen 500 mg capsule 1,000 mg PO Q6H diazepam 5 mg tablet 5 mg PO Q6H PRN (Reason: muscle spasm) polyethylene glycol 3350 17 gram powder in packet 17 g PO BID sennosides-docusate sodium [Senna with Docusate Sodium] 8.6-50 mg tablet 1 tab-cap PO BID cholecalciferol (vitamin D3) 125 mcg (5,000 unit) capsule 5,000 unit PO DAILY calcium carbonate 600 mg calcium (1,500 mg) tablet 600 mg PO BID diphenhydramine HCl 25 mg capsule 25 mg PO HS gabapentin 800 mg tablet 800 mg PO TID Linzess 290 mcg capsule 290 mcg PO QAM Ozempic 1 mg/dose (4 mg/3 mL) pen injector 1 mg subcut WEEKLY ergocalciferol (vitamin D2) 1,250 mcg (50,000 unit) capsule 1,250 mcg PO WEEKLY zolpidem 10 mg tablet 10 mg PO HS cyclobenzaprine 10 mg Tablet 5 mg PO Q8H Qty: 90 0RF cyclobenzaprine 5 mg tablet 5 mg PO TID Qty: 90 0RF amlodipine 10 mg tablet 10 mg PO DAILY Qty: 30 0RF aripiprazole 10 mg tablet 10 mg PO DAILY Qty: 30 0RF hydralazine 50 mg tablet 50 mg PO BID Qty: 60 0RF lisinopril 40 mg tablet 40 mg PO DAILY Qty: 30 0RF propranolol 10 mg tablet 10 mg PO Q12H Qty: 60 0RF risperidone 1 mg tablet 1 mg PO HS Qty: 30 0RF rosuvastatin 20 mg tablet 20 mg PO DAILY Qty: 30 0RF citalopram 30 mg capsule 30 mg PO DAILY Qty: 30 0RF oxycodone 5 mg tablet 5 - 10 mg PO Q4H PRN (Reason: pain) Qty: 30 0RF Rx Instructions: Take 1 tablet for moderate pain or 2 tablets for severe pain only naloxone [Narcan] 4 mg/actuation spray,non-aerosol 4 mg intranasal Q2M PRN (Reason: opioid overdose) Qty: 2 0RF Rx Instructions: spray 1 dose into ONE nostril; alternate nostrils w each dose until help arrives Follow-up/Referrals: UNKNOWN,DOCTOR [Primary Care Provider] Time of Disposition: 16:47
[2025-03-10 16:26] VITALS: BP 162/91; PULSE 110; RESP 20; TEMP 36.7; O2SAT 97
[2025-03-10 16:46] LABS: EDCOVIDSCREEN Negative (Negative); EDINFLUASCREEN Negative (Negative); EDINFLUBSCREEN Negative (Negative)
== END 2025-03-10 16:56 | disposition home or self-care (01) ==
PROVIDERS: Emergency Provider Nurse Practitioner
DX: J06.9 Acute upper respiratory infection, unspecified (principal); Z20.822 Contact with and (suspected) exposure to COVID-19; R01.1 Cardiac murmur, unspecified; I10 Essential (primary) hypertension; E11.9 Type 2 diabetes mellitus without complications; Z79.85 Long-term (current) use of injectable non-insulin antidiabetic drugs; E66.9 Obesity, unspecified; F31.9 Bipolar disorder, unspecified
CPT/HCPCS: 87426; 87804; 99212; G0463